=== PATIENT | female | born 1975 | race Caucasian/White ===

== ENCOUNTER → 2017-06-16 18:21 | Outpatient (CLI) | payer MEDICARE ==
[2012-02-25 12:08] VITALS: BMI 38.0
== END | disposition home or self-care (01) ==
LOC: D.MAMMO 11:00
DX: Z12.31 Encounter for screening mammogram for malignant neoplasm of breast (principal)

== ENCOUNTER → 2018-08-11 17:54 | Outpatient (CLI) | payer MEDICARE ==
[2012-02-25 12:08] VITALS: BMI 38.0
== END | disposition home or self-care (01) ==
LOC: D.MAMMO 16:15
DX: Z12.31 Encounter for screening mammogram for malignant neoplasm of breast (principal)

== ENCOUNTER → 2018-09-17 16:53 | Outpatient (CLI) | payer MEDICARE ==
[2012-02-25 12:08] VITALS: BMI 38.0
== END | disposition home or self-care (01) ==
LOC: D.MAMMO 14:30
DX: R92.8 Other abnormal and inconclusive findings on diagnostic imaging of breast (principal)